=== PATIENT | male | born 1955 ===

== ENCOUNTER → 2016-10-16 | Day surgery (SDC) | payer MEDICAID ==
--- NOTE | 2016-10-13 11:14 | Pre-Procedure Note/Attestation ---
Pre-Procedure Note/Attestation Complete Prior to Procedure Planned Procedure: left Procedure Narrative: phaco with IOL Indications for Procedure Pre-Operative Diagnosis: cataract Attestation I attest that I discussed the nature of the procedure; its benefits; risks and complications; and alternatives (and the risks and benefits of such alternatives ), prior to the procedure, with the patient (or the patient's legal manufacturer representative). I attest that, if there was a reasonable possibility of needing a blood transfusion, the patient (or the patient's legal manufacturer representative) was given the [facility] standardized written summary, pursuant to the [place] Blood Safety Act ([place] Health and Safety Code # 1645, as amended). I attest that I re-evaluated the patient just prior to the surgery and that there has been no change in the patient's H&P, except as documented below: MG DELAROSA Oct 13, 2016 11:14
--- NOTE | 2016-10-13 11:16 | Opthalmology H&P ---
Ophthalmology H&P H&P Chief Complaint: decreased vision in left eye HPI Vision Affects Ability to: read, focus/use eyes together, manage personal affairs HPI Narrative blurry vision Exam Visual Acuity: OD: 20/ 100 OS; HM Tension: OD:15 OS: 13 Eye Exam: normal OU: anterior chambers, corneas, external exam, fundus exam, levator function, marginal reflex distance, palpebral fissure-width, findings: lens Assessment/Plan Diagnosis: (1) Cataract Treatment Plan: cataract extraction w/ lens implant Goals of Treatment: improvement of vision, enhance quality of life Attestation Attestation The risks and benefits of the surgery as well as alternative procedures were explained to the patient in detail. MG DELAROSA Oct 13, 2016 11:16
[~2016-10-16] VITALS: Ht 167.6 cm; Wt 72.6 kg
[2016-10-16] VITALS (9 sets, daily range): BP systolic 130–145; BP diastolic 75–99
[~2016-10-16] MED LIST: Akten 3.5% 1ml Btl LEFT EYE ONE; BSS 15ml BTL ONE; BSS 500ml btl ONE; Bupivacaine 0.75% 30ml vial INJ ONE; Carbachol 0.01% Op Soln 1.5ml vial ONE; Dexamethasone 4mg/ml vial ONE; DiphenhydrAMINE 50mg/ml Inj IVP PRN; DiphenhydrAMINE 50mg/ml Inj ONE; EPINEPHrine 1mg/1ml Amp ONE; LR 1000ml 1,000 ML IVLG SCH; LR 1000ml ONE; Labetalol 5mg/ml 20ml vial IV PRN; Lidocaine 1% MPF 10mg/ml 5ml ONE; Lidocaine 2% MPF 5ml Vial INJ ONE; Lidocaine 4% Amp ONE; MULTIVITAMINS1 EAC2 ORAL; NS Irrig 1000ml ONE; Pilocarpine 2% Opth Soln ONE; Povidone-Iodine 5% opth solution ONE; Sodium Hyaluronate 14 mg/ml 0.85ml ONE; Sterile Water Irrig 1000ml IRRIG ONE; Tobramycin Op Soln 0.3% LEFT EYE ONE; acetaZOLAMIDE 500mg Inj ONE; fentaNYL 100 mcg/2 mL IV ONE
[2016-10-16] MEDS: Cyclopentolate 1% Opth Sol LEFT EYE SCH ×3 (08:22→08:36)
[2016-10-16] MEDS: Tropicamide 1% Opth Soln LEFT EYE SCH ×3 (08:22→08:35)
[2016-10-16] MEDS: Phenylephrine 2.5% Op Soln LEFT EYE SCH ×3 (08:23→08:36)
--- NOTE | 2016-10-16 09:43 | 48 Hour Post Anesthesia Eval ---
Post Anesthesia Evaluation Procedure: Left cataract extraction with IOL Date of Evaluation: Oct 16, 2016 Blood Pressure Systolic: 159 0: 92 Pulse Rate: 59 Respiratory Rate: 16 O2 Sat by Pulse Oximetry: 98 Airway: patent Nausea: No Vomiting: No Pain Intensity: 0 Hydration Status: adequate Cardiopulmonary Status: at baseline Mental Status/LOC: patient returned to baseline Post-Anesthesia Complications: 0 Follow-up care needed: ready to discharge PENELOPE HODGE M.D. Oct 16, 2016 09:43
--- NOTE | 2016-10-16 09:43 | Immediate Post-Op Evaluation ---
Immediate Post-Op Evalulation Immediate Post-Op Evalulation Procedure: Left cataract extraction with IOL Date of Evaluation: Oct 16, 2016 Time of Evaluation: 10:53 IV Fluids: 300 Blood Products: 0 Estimated Blood Loss: 0 Urinary Output: 0 Blood Pressure Systolic: 173 Blood Pressure Diastolic: 99 Pulse Rate: 54 Respiratory Rate: 16 O2 Sat by Pulse Oximetry: 97 Temperature (Fahrenheit): 97.2 Pain Score (1-10): 0 Nausea: No Vomiting: No Complications 0 Patient Status: awake, reacts, patent, none Hydration Status: adequate Drug: N/A PENELOPE HODGE M.D. Oct 16, 2016 09:43
--- NOTE | 2016-10-16 09:43 | Anethesia Preoperative Eval ---
Anesthesia Pre-op PMH/ROS General Date of Evaluation: Oct 16, 2016 Anesthesiologist: Stephen ASA Score: ASA 2 Mallampati Score Class I : Soft palate, uvula, fauces, pillars visible Class II: Soft palate, uvula, fauces visible Class III: Soft palate, base of uvula visible Class IV: Only hard plate visible Mallampati Classification: Class II Surgeon: Sharmaine Diagnosis: left cataract Surgical Procedure: Left cataract extraction with IOL Anesthesia History: none Family History: no anesthesia problems Allergies: Coded Allergies: No Known Allergies (Unverified , 10/13/16) Medications: see eMAR Past Medical History Cardiovascular: Reports: HTN, other - HLd, Denies: CAD, LA, arrhythmia, valve dz Pulmonary: Denies: COPD, TEZ, asthma, other Gastrointestinal/Genitourinary: Denies: CRI, ESRD, GERD, other Neurologic/Psychiatric: Denies: CVA, TIA, dementia, depression/anxiety, other Endocrine: Denies: DM, hypothyroidism, other, steroids HEENT: Denies: [place] (L), [place] (R), cataract (L), cataract (R), glaucoma, other Hematology/Immune: Denies: DVT, anemia, bleeding disorder, other Musculoskeletal/Integumentary: Denies: DDD, DJD, OA, RA, edema, other PSxH Narrative: Right eye sx Anesthesia Pre-op Phys. Exam Physician Exam Last Vital Signs Date Time Temp Pulse Resp B/P Pulse Ox O2 Delivery O2 Flow Rate FiO2 10/16/16 08:01 98.1 57 18 132/89 96 Room Air Constitutional: NAD Cardiovascular: RRR Respiratory: CTA Airway Exam Mallampati Score: Class II MO: full ROM: full Anesthesia Pre-op A/P Labs see chart Studies Pre-op Studies: EKG - sr Risk Assessment & Plan Assessment: ASA II Plan: MAC Status Change Before Surgery: No Pre-Antibiotics Drug: N/A PENELOPE HODGE M.D. Oct 16, 2016 09:43
--- NOTE | 2016-10-17 09:05 | Brief Operative Note ---
Immediate Post Operative Note Operative Note Chief Complaint: blurry vision Pre-op Diagnosis: cataract Procedure: phaco with IOL Post-op Diagnosis: Pseudophakia Post-op Diagnosis: same as pre-op Findings: consistent w/pre-op dx studies Surgeon: Sharmaine Anesthesiologist: Isiah Anesthesia: MAC Specimen: none Complications: none Condition: stable Estimated Blood Loss: none Drains: none Implant(s) used?: Yes MG DELAROSA Oct 17, 2016 09:05
--- NOTE | 2016-10-17 14:48 | Operative Note - PDOC ---
Operative Note Operative Note Date of Operation/Procedure: Oct 16, 2016 Chief Complaint: blurry vision Pre-op Diagnosis: cataract Procedure: phaco with IOL Post-op Diagnosis: Pseudophakia Post-op Diagnosis: same as pre-op Operative Findings: consistent w/pre-op dx studies Surgeon: Sharmaine Anesthesiologist: Isiah Anesthesia: MAC Specimen: none Complications: none Condition: stable Estimated Blood Loss: none Drains: none Implant(s) used?: Yes Indications for Procedure cataract Description of Procedure This patient has been complaining visually significant cataract in the affected eye with the best corrected visual acuity under moderate glare conditions worse. The patient complains of difficulties with glare in performing activities of daily living and wants to manage personal affairs with comfort and accuracy and see well enough to move with safety at home and outdoors. ~~~ The risks, benefits and alternatives of the procedure were discussed with the patient in the office prior to scheduling surgery. All questions from the patient were answered after the surgical procedure was explained in detail. The risks of the procedure as explained to the patient include, but are not limited to, pain, infection, bleeding, loss of vision, retinal detachment, need for further surgery, loss of lens nucleus, double vision, etc. Alternative procedures were discussed which include, to do nothing or seek a second opinion. Informed consent for this procedure was obtained from the patient. The patient was referred to a primary care physician for a cardiopulmonary clearance prior to surgery, after proper evaluation was done patient was properly scheduled for outpatient surgery. The patient was brought to the operating room where the anesthesiologist established I.V. lines and cardiac monitoring leads. Mild intravenous sedation was administered.~~ The patient was then prepared with a 5% solution of povidone -iodine to the conjunctival fornix and lashes, and a 10% solution of povidone- iodine to the lids and periorbital skin. The patient was then draped in the usual sterile fashion. A lid speculum was then placed in the operative eye. A keratome blade was then used to create a biplanar incision into the anterior chamber. Viscoelastics was then instilled into the anterior chamber. A capsulorrhexis was then fashioned with an utrata forceps. BSS and a cannula were then used to hydrodissect and hydro delineate the lens. Paracentesis incision was made at 3 o'clock with sharp blade. The phacoemulsification unit, after being properly adjusted~ and tested, was then used to emulsify the nucleus followed by aspiration and irrigation of residual cortical material. [place] was then instilled into the anterior chamber. The corneal wound was then enlarged to the size of the optic with the mike keratome blade. The intraocular lens was then inspected for right~ power and size~ and thought to be satisfactory. Then the lens was gently placed in the capsular bag. Positioning within the capsular bag was confirmed by direct visualization. Viscoelastics~ was removed from the anterior chamber using the irrigation and aspiration unit. The corneal wound was then tested for leaks and none were found. The lid speculum were then removed. Sponge and needle counts were correct. An eye patch and shield were placed over the operative eye. The patient was taken to the recovery room in stable condition. There were no complications. The patient tolerated the procedure well. The patient was then transferred to the ambulatory surgery unit in stable and satisfactory condition , was given detailed written instructions and asked to follow up~ in the office the next day. ~ ~ Dictated & Transcribed: Onofre Sandeep NAYLOR JAMES Oct 17, 2016 14:48
== END | disposition home or self-care (01) ==
LOC: SUR 06:41
DX: H26.9 Unspecified cataract (principal); I10 Essential (primary) hypertension; E78.5 Hyperlipidemia, unspecified
CPT/HCPCS: 66984; J3010; J3370; J7120; V2632; Z7512; 94003; 94150

== ENCOUNTER 2019-01-13 06:52 | Day surgery (SDC) | payer MEDICAID ==
--- NOTE | 2019-01-09 16:13 | Opthalmology H&P ---
Ophthalmology H&P H&P Chief Complaint: decreased vision in right eye HPI Vision Affects Ability to: read, focus/use eyes together, manage personal affairs Past Ocular History: other HPI Narrative Blurry Vision Exam Visual Acuity: OD Counting Fingers OS 20/30 Tension: OD 23 OS 20 Eye Exam: normal OU: external exam, palpebral fissure-width, marginal reflex distance, levator function, corneas, anterior chambers; findings: lens - Nuclear Sclerotic Cataract Right Eye, fundus exam - Poor View OD Assessment/Plan Treatment Plan: cataract extraction w/ lens implant Goals of Treatment: improvement of vision, enhance quality of life Attestation Attestation The risks and benefits of the surgery as well as alternative procedures were explained to the patient in detail. Miky Schmid MD January 09, 2019 16:13
--- NOTE | 2019-01-09 16:14 | Pre-Procedure Note/Attestation ---
Pre-Procedure Note/Attestation Complete Prior to Procedure Planned Procedure: right Procedure Narrative: Cataract Extraction With Intraocular Lens Right Eye Indications for Procedure Pre-Operative Diagnosis: Nuuclear Sclerotic Cataract Right Eye Attestation I attest that I discussed the nature of the procedure; its benefits; risks and complications; and alternatives (and the risks and benefits of such alternatives ), prior to the procedure, with the patient (or the patient's legal charter representative). I attest that, if there was a reasonable possibility of needing a blood transfusion, the patient (or the patient's legal charter representative) was given the [facility] standardized written summary, pursuant to the [place] Blood Safety Act ([place] Health and Safety Code # 1645, as amended). I attest that I re-evaluated the patient just prior to the surgery and that there has been no change in the patient's H&P, except as documented below: Miky Schmid MD January 09, 2019 16:14
[2019-01-13] VITALS (10 sets, daily range): BP systolic 113–136; BP diastolic 72–83
[~2019-01-13] VITALS: Ht 167.6 cm; Wt 77.1 kg
[~2019-01-13 06:52] MED LIST changes: -Akten 3.5% 1ml Btl LEFT EYE ONE; -BSS 15ml BTL ONE; -BSS 500ml btl ONE; -Bupivacaine 0.75% 30ml vial INJ ONE; -Carbachol 0.01% Op Soln 1.5ml vial ONE; -Dexamethasone 4mg/ml vial ONE; -DiphenhydrAMINE 50mg/ml Inj IVP PRN; -DiphenhydrAMINE 50mg/ml Inj ONE; -EPINEPHrine 1mg/1ml Amp ONE; -LR 1000ml 1,000 ML IVLG SCH; -LR 1000ml ONE; -Labetalol 5mg/ml 20ml vial IV PRN; -Lidocaine 1% MPF 10mg/ml 5ml ONE; -Lidocaine 2% MPF 5ml Vial INJ ONE; -Lidocaine 4% Amp ONE; -NS Irrig 1000ml ONE; -Pilocarpine 2% Opth Soln ONE; -Povidone-Iodine 5% opth solution ONE; -Sodium Hyaluronate 14 mg/ml 0.85ml ONE; -Sterile Water Irrig 1000ml IRRIG ONE; -Tobramycin Op Soln 0.3% LEFT EYE ONE; -acetaZOLAMIDE 500mg Inj ONE; -fentaNYL 100 mcg/2 mL IV ONE
[2019-01-13] MEDS ORDERED: Dexamethasone 4mg/ml vial ONE (07:00)
[2019-01-13] MEDS ORDERED: Proparacaine 0.5% Opth Soln 15ml RIGHT EYE ONE (07:00)
[2019-01-13] MEDS ORDERED: Tetracaine 0.5% Opth 4ml Soln RIGHT EYE ONE (07:00)
[2019-01-13] MEDS ORDERED: Akten 3.5% 1ml Btl RIGHT EYE ONE (07:00)
[2019-01-13] MEDS ORDERED: Pilocarpine 1% Opth 15ml Soln ONE (07:00)
[2019-01-13] MEDS ORDERED: Maxitrol Opth Oint 3.5gm ONE (07:00)
[2019-01-13] MEDS ORDERED: Pred Forte 1% Opth Susp 1ml ONE (07:00)
[2019-01-13] MEDS: Tropicamide 1% Opth 15ml Soln RIGHT EYE SCH ×3 (08:21→08:42)
[2019-01-13] MEDS: Phenylephrine 10% Opth Soln 5ml RIGHT EYE SCH ×3 (08:22→08:41)
[2019-01-13] MEDS: Cyclopentolate 1% Opth Sol 2ml RIGHT EYE SCH ×3 (08:24→08:41)
[2019-01-13] MEDS: Diclofenac Sod 0.1% Op Soln RIGHT EYE SCH ×3 (08:24→08:42)
[2019-01-13] MEDS: Tobramycin Op Soln 0.3% 5ml RIGHT EYE SCH ×3 (08:25→08:42)
[2019-01-13] MEDS ORDERED: BSS 15ml BTL ONE (09:00)
[2019-01-13] MEDS ORDERED: EPINEPHrine 1mg/1ml Amp ONE ×2 (09:00→09:56)
[2019-01-13] MEDS ORDERED: Povidone-Iodine 5% opth solution ONE (09:00)
[2019-01-13] MEDS ORDERED: Sodium Hyaluronate 14 mg/ml 0.85ml ONE (09:00)
[2019-01-13] MEDS ORDERED: BSS 500ml btl ONE ×2 (09:00→09:56)
[2019-01-13] MEDS ORDERED: fentaNYL 100 mcg/2 mL IV ONE (09:14)
[2019-01-13] MEDS ORDERED: Midazolam 2mg/2ml Inj ONE (09:14)
--- NOTE | 2019-01-13 09:43 | Anethesia Preoperative Eval ---
Anesthesia Pre-op PMH/ROS General Date of Evaluation: January 13, 2019 Time of Evaluation: 09:05 Anesthesiologist: rico ASA Score: ASA 2 Mallampati Score Class I : Soft palate, uvula, fauces, pillars visible Class II: Soft palate, uvula, fauces visible Class III: Soft palate, base of uvula visible Class IV: Only hard plate visible Mallampati Classification: Class II Surgeon: brian Diagnosis: cataract Surgical Procedure: cataract extraction Anesthesia History: none Family History: no anesthesia problems Allergies: Coded Allergies: No Known Allergies (Unverified , 01/10/19) Medications: see eMAR Patient NPO?: Yes NPO Date: January 13, 2019 NPO Time: 00:01 Past Medical History Cardiovascular: Reports: HTN Pulmonary: Denies: asthma, COPD, TEZ, other Gastrointestinal/Genitourinary: Denies: GERD, CRI, ESRD, other Neurologic/Psychiatric: Denies: dementia, CVA, depression/anxiety, TIA, other Endocrine: Denies: DM, hypothyroidism, steroids, other HEENT: Reports: cataract (R) Hematology/Immune: Denies: anemia, DVT, bleeding disorder, other Musculoskeletal/Integumentary: Denies: OA, RA, DJD, DDD, edema, other PSxH Narrative: left cataract Anesthesia Pre-op Phys. Exam Physician Exam Last Vital Signs Date Time Temp Pulse Resp B/P (MAP) Pulse Ox O2 Delivery O2 Flow Rate FiO2 01/13/19 08:45 Room Air 01/13/19 08:39 97.3 53 18 118/72 95 Constitutional: NAD Neurologic: CN 2-12 intact Cardiovascular: RRR Respiratory: CTA Gastrointestinal: S/NT/ND Airway Exam Mallampati Classification 3 Mallampati Score: Class III MO: full ROM: full Dentures: no upper, no lower Anesthesia Pre-op A/P Studies Pre-op Studies: EKG - sr Risk Assessment & Plan Assessment: denies changes in health Plan: mac Status Change Before Surgery: No Pre-Antibiotics Drug: none Evy Sandoval CRNA January 13, 2019 09:43
[2019-01-13] MEDS ORDERED: fentaNYL 100 mcg/2 mL IV PRN (09:45)
--- NOTE | 2019-01-13 10:29 | Immediate Post-Op Evaluation ---
Immediate Post-Op Evalulation Immediate Post-Op Evalulation Procedure: cataract extraction Date of Evaluation: January 13, 2019 Time of Evaluation: 09:45 IV Fluids: 300 Blood Pressure Systolic: 134 Blood Pressure Diastolic: 80 Pulse Rate: 75 Respiratory Rate: 14 O2 Sat by Pulse Oximetry: 99 Temperature (Fahrenheit): 97.1 Nausea: No Vomiting: No Patient Status: awake, reacts, patent Hydration Status: adequate Drug: none ChantelriEvy robles CRNA January 13, 2019 10:29
--- NOTE | 2019-01-13 10:52 | 48 Hour Post Anesthesia Eval ---
Post Anesthesia Evaluation Procedure: cataract extraction Date of Evaluation: January 13, 2019 Time of Evaluation: 10:52 Blood Pressure Systolic: 113 0: 80 Pulse Rate: 74 Respiratory Rate: 14 O2 Sat by Pulse Oximetry: 98 Airway: patent Nausea: No Vomiting: No Hydration Status: adequate Cardiopulmonary Status: stable Mental Status/LOC: patient returned to baseline Follow-up Care/Observations: na Post-Anesthesia Complications: none Follow-up care needed: N/A Evy Sandoval CRNA January 13, 2019 10:52
--- NOTE | 2019-01-15 10:30 | Brief Operative Note ---
Immediate Post Operative Note Operative Note Chief Complaint: Cataract causing blurry vison right eye Pre-op Diagnosis: Nuclear Sclerotic Cataract Right Eye Procedure: Cataract Extraction With IOL Right Eye Post-op Diagnosis: Pseudo OU Post-op Diagnosis: same as pre-op Surgeon: Miky Schmid MD Anesthesiologist: Evy Sandoval CRNA Anesthesia: MAC Specimen: none Complications: none Condition: stable Fluids: LR Estimated Blood Loss: none Drains: none Implant(s) used?: Yes Miky Schmid MD January 15, 2019 10:30
--- NOTE | 2019-01-15 10:38 | Operative Note - PDOC ---
Operative Note Operative Note Date of Operation/Procedure: January 13, 2019 Chief Complaint: Cataract causing blurry vison right eye Pre-op Diagnosis: Nuclear Sclerotic Cataract Right Eye Procedure: Cataract Extraction With IOL Right Eye Post-op Diagnosis: Pseudo OU Post-op Diagnosis: same as pre-op Surgeon: Miky Schmid MD Anesthesiologist: Evy Sandoval CRNA Anesthesia: MAC Specimen: none Complications: none Condition: stable Fluids: LR Estimated Blood Loss: none Drains: none Implant(s) used?: Yes Indications for Procedure Nuclear Sclerotic Cataract Right Eye Description of Procedure This patient has been complaining visually significant cataract in the right eye with the best corrected visual acuity under moderate glare conditions worse. The patient complains of difficulties with glare in performing activities of daily living and wants to manage personal affairs with comfort and accuracy and see well enough to move with safety at home and outdoors. The risks, benefits and alternatives of the procedure were discussed with the patient in the office prior to scheduling surgery. All questions from the patient were answered after the surgical procedure was explained in detail. The risks of the procedure as explained to the patient include, but are not limited to, pain, infection, bleeding, loss of vision, retinal detachment, need for further surgery, loss of lens nucleus, double vision, etc. Alternative procedures were discussed which include, to do nothing or seek a second opinion. Informed consent for this procedure was obtained from the patient. The patient was referred to a primary care physician for a cardiopulmonary clearance prior to surgery, after proper evaluation was done patient was properly scheduled for outpatient surgery. The patient was brought to the operating room where the anesthesiologist established I.V. lines and cardiac monitoring leads. Mild intravenous sedation was administered. The patient was then prepared with a 5% solution of povidone -iodine to the conjunctival fornix and lashes, and a 5% solution of povidone- iodine to the lids and periorbital skin. The patient was then draped in the usual sterile fashion. A lid speculum was then placed in the operative eye. A keratome blade was then used to create a biplanar incision into the anterior chamber. Viscoelastics was then instilled into the anterior chamber. A 3-mm single pass clear corneal incision was made just anterior to the vascular arcade of the temporal limbus using a keratome. Anterior capsulorrhexis was created. The nucleus was hydrodissected and hydrodelineated, and was freely movable in the capsular bag. The nucleus was then phacoemulsified. Following the deep groove formation, the lens was split bimanually and epicortex removed under vacuum burst-mode phacoemulsification. Peripheral cortex was removed with the irrigation and aspiration handpiece. The capsular bag was expanded with viscoelastic. The intraocular lens was then inspected for right power and size and thought to be satisfactory. The implant was inspected under the microscope and found to be free of defects. The implant was inserted into the cartridge system under viscoelastic and placed in the capsular bag. The trailing haptic was positioned with the cartridge system. Viscoelastics was removed from the anterior chamber using the irrigation and aspiration unit. The corneal wound was then tested for leaks and none were found. The lid speculum were then removed. Sponge and needle counts were correct. An eye patch and shield were placed over the operative eye. The patient was taken to the recovery room in stable condition. There were no complications. The patient tolerated the procedure well. The patient was then transferred to the ambulatory surgery unit in stable and satisfactory condition , was given detailed written instructions and asked to follow up in the office the next day. Miky Schmid MD January 15, 2019 10:38
== END 2019-01-13 13:00 | disposition home or self-care (01) ==
LOC: SUR 06:52
DX: H25.11 Age-related nuclear cataract, right eye (principal); Z79.899 Other long term (current) drug therapy; E78.00 Pure hypercholesterolemia, unspecified; I10 Essential (primary) hypertension
CPT/HCPCS: 66984; J0171; J1100; J2250; J3010; J3370; V2632; Z7512; 94003; 94150